=== PATIENT | female | born 1955 | race Caucasian/White ===

== ENCOUNTER 2016-05-08 10:37 | Outpatient (RCR) | payer OTHER ==
[~2016-05-08 10:37] MED LIST: ADALAT CC30 MG PO; HCTZ 25MG TAB25 MG PO; SYNTHROID 0.0.025 MG PO; SYNTHROID0.137 MG PO; ZOCOR 40MG40 MG PO
== END 2016-05-17 11:53 | disposition still patient (30) ==
LOC: WSPT 10:37
DX: R53.1 Weakness (principal); Z92.3 Personal history of irradiation; Z85.118 Personal history of other malignant neoplasm of bronchus and lung
CPT/HCPCS: G8978-GP; G8979-GP; G8980-GP